=== PATIENT | female | born 1965 ===

== ENCOUNTER 2022-02-24 10:49 | Outpatient (CLI) | payer OTHER | END 2022-02-24 12:22 | disposition home or self-care (01) | LOC: SONOGRAMA 10:49 | PROVIDERS: ATTEND Pathology Anatomic Pathology & Clinical Pathology | DX: D34 Benign neoplasm of thyroid gland (principal); E06.5 Other chronic thyroiditis; E04.9 Nontoxic goiter, unspecified; E04.1 Nontoxic single thyroid nodule ==